=== PATIENT | male | born 1955 | race Caucasian/White ===

== ENCOUNTER 2021-09-07 10:35 | Outpatient (CLI) | payer BC | END 2021-09-07 10:36 | disposition home or self-care (01) | LOC: SCSCT 10:35 | PROVIDERS: ATTEND Family Medicine | DX: R31.9 Hematuria, unspecified (principal); M54.50 Low back pain, unspecified; N20.0 Calculus of kidney; Z93.2 Ileostomy status | CPT/HCPCS: 74176 ==

== ENCOUNTER 2021-10-05 16:40 | Inpatient (IN) | payer BC, MEDICARE ==
[~2021-10-05 16:40] MED LIST: ISOVUE-370 76%-LOCM 1 ML ONE
[2021-10-05 17:29] LABS: #Basophils 0.1 thou/uL (0.0-0.2); #Eosinphils 0.2 thou/uL (0.0-0.7); #Lymphocytes 1.3 thou/uL (1.20-3.40); %Basophils 1.4 % (0.0-1.0); %Eosinophils 2.9 % (0.0-10.0); %Lymphocytes 19.3 % (21.0-51.0); %Monocytes 14.6 % (0.0-10.0); %Neutrophils 61.9 % (42.0-75.0); Hemoglobin 16.2 g/dL (14.0-18.0); Mean Corpuscular HGB CONC 33.4 g/dL (32.0-36.0); Mean Corpuscular Hemoglobin 33.4 pg (27.0-31.0); Mean Platelet Volume 7.5 fL (7.4-10.4); Platelet Count 198 thou/uL (130-400); RBC Distribution Width 12.3 % (11.5-14.5); Red Blood Cell (RBC) Count 4.84 mill/uL (4.70-6.10); White Blood Cell (WBC) Count 6.5 thou/uL (4.8-10.8)
[2021-10-05 17:55] LABS: ALT (SGPT) 47 U/L (8-55); AST (SGOT) 56 U/L (5-34); Albumin 4.4 g/dL (3.4-4.8); Alkaline Phosphatase 90 U/L (40-110); Anion Gap 13 mmol/L (10-20); BUN (Urea Nitrogen) 17 mg/dL (8.4-25.7); Bilirubin, Total 0.4 mg/dL (0.2-1.2); Calc. Creatinine Clearance 0 mL/min (70-130); Calcium 9.5 mg/dL (7.8-10.44); Carbon Dioxide 27 mmol/L (23-31); Chloride 102 mmol/L (98-107); Estimated GFR 69; Globulin 2.7 g/dL (2.4-3.5); Glucose 102 mg/dL (80-115); Lipase 99 U/L (8-78); Potassium 4.2 mmol/L (3.5-5.1); Protein, Total 7.1 g/dL (5.8-8.1); Sodium 138 mmol/L (136-145)
[2021-10-05] MEDS ORDERED: Aspirin Chewable 81 MG TAB ONE (20:28)
[2021-10-05] MEDS ORDERED: Bisacodyl 5 MG TAB PO PRN (21:59)
[2021-10-05] MEDS ORDERED: Senokot S 8.6-50 MG TAB PO PRN (21:59)
[2021-10-05] MEDS ORDERED: Acetaminophen 325 MG TAB PO PRN (21:59)
[2021-10-05] MEDS ORDERED: Acetaminophen 650 MG Suppository PR PRN (21:59)
[2021-10-05] MEDS ORDERED: Ondansetron PF 4 MG/2 ML Vial IVP PRN (21:59)
[2021-10-05] MEDS ORDERED: HYDROcodone/Acetaminophen 5/325 mg Tablet PO PRN (21:59)
[2021-10-05] MEDS ORDERED: Ondansetron ODT 4 MG TAB PO PRN (21:59)
[2021-10-05 22:24] LABS: Hemoglobin A1c 5.3 % (4.0-6.0)
[2021-10-05] MEDS ORDERED: Morphine 2 MG/ML VIAL SLOW IVP PRN (22:29)
[2021-10-05] MEDS: Sodium Chloride 0.9% 1,000 ML IV SCH (23:00)
[2021-10-06 01:10] LABS: Troponin I 0.016 ng/mL (< 0.028)
[2021-10-06 04:50] LABS: #Basophils 0.1 thou/uL (0.0-0.2); #Eosinphils 0.3 thou/uL (0.0-0.7); #Lymphocytes 1.2 thou/uL (1.20-3.40); #Monocytes 0.8 thou/uL (0.11-0.59); #Neutrophils 3.5 thou/uL (1.40-6.50); %Lymphocytes 20.9 % (21.0-51.0); %Monocytes 13.1 % (0.0-10.0); %Neutrophils 60.1 % (42.0-75.0); Hemoglobin 14.7 g/dL (14.0-18.0); Mean Corpuscular HGB CONC 32.3 g/dL (32.0-36.0); Mean Corpuscular Hemoglobin 32.5 pg (27.0-31.0); Mean Platelet Volume 7.7 fL (7.4-10.4); Platelet Count 179 thou/uL (130-400); RBC Distribution Width 12.4 % (11.5-14.5); Red Blood Cell (RBC) Count 4.53 mill/uL (4.70-6.10); White Blood Cell (WBC) Count 5.8 thou/uL (4.8-10.8)
[2021-10-06 05:10] LABS: ALT (SGPT) 39 U/L (8-55); AST (SGOT) 49 U/L (5-34); Albumin 3.9 g/dL (3.4-4.8); Alkaline Phosphatase 72 U/L (40-110); Anion Gap 12 mmol/L (10-20); BUN (Urea Nitrogen) 14 mg/dL (8.4-25.7); Bilirubin, Total 0.4 mg/dL (0.2-1.2); Calc. Creatinine Clearance 150 mL/min (70-130); Calcium 8.8 mg/dL (7.8-10.44); Carbon Dioxide 24 mmol/L (23-31); Cardiac Risk 4.5 (Less than 4.5); Chloride 106 mmol/L (98-107); Cholesterol 180 mg/dl (< 200 Desired); Estimated GFR 95; Globulin 2.7 g/dL (2.4-3.5); Glucose 96 mg/dL (80-115); HDL Cholesterol 40 mg/dL (>60 Neg Risk); LDL Cholesterol, Calculated 124 mg/dL; Potassium 3.9 mmol/L (3.5-5.1); Protein, Total 6.6 g/dL (5.8-8.1); Sodium 138 mmol/L (136-145); Triglycerides 81 mg/dL (Less than 150)
[2021-10-06 05:13] LABS: Troponin I 0.016 ng/mL (< 0.028)
[2021-10-06] MEDS: Sodium Chloride 0.9% 1,000 ML IV SCH ×2 (10:45→17:50)
[2021-10-06] MEDS: Nitroglycerin 2% Ointment 1 INCH/1 GM Packet TOP SCH ×2 (10:45→14:43)
[2021-10-06] MEDS ORDERED: Aspirin Chewable 81 MG TAB ONE (10:50)
[2021-10-06] MEDS: Aspirin Chewable 81 MG TAB PO SCH (10:51)
[2021-10-06 12:39] VITALS: BMI 39.2
[2021-10-07] MEDS: Sodium Chloride 0.9% 1,000 ML IV SCH (03:06)
[2021-10-07] MEDS ORDERED: Regadenoson 0.4 MG/5 ML SYRINGE ONE (09:47)
[2021-10-07 12:22] LABS: Campy jejuni + coli by PCR Negative (Negative); STEC Shiga Toxin 1+2 Negative (Negative); Salmonella spp. by PCR Negative (Negative); Shigella spp + EIEC by PCR Negative (Negative)
[2021-10-07] MEDS: Aspirin Chewable 81 MG TAB PO SCH (14:50)
[2021-10-07] MEDS ORDERED: GoLYTELY 4,000 ml Bottle PO SCH ×2 (16:00→17:15)
[2021-10-08 04:59] LABS: #Basophils 0.1 thou/uL (0.0-0.2); #Eosinphils 0.4 thou/uL (0.0-0.7); #Neutrophils 5.3 thou/uL (1.40-6.50); %Basophils 0.7 % (0.0-1.0); %Eosinophils 4.9 % (0.0-10.0); %Lymphocytes 13.1 % (21.0-51.0); %Monocytes 12.6 % (0.0-10.0); %Neutrophils 68.8 % (42.0-75.0); Hemoglobin 14.9 g/dL (14.0-18.0); Mean Corpuscular HGB CONC 32.7 g/dL (32.0-36.0); Mean Corpuscular Hemoglobin 33.4 pg (27.0-31.0); Mean Platelet Volume 7.6 fL (7.4-10.4); Platelet Count 177 thou/uL (130-400); RBC Distribution Width 12.4 % (11.5-14.5); Red Blood Cell (RBC) Count 4.46 mill/uL (4.70-6.10); White Blood Cell (WBC) Count 7.7 thou/uL (4.8-10.8)
[2021-10-08 05:22] LABS: Anion Gap 11 mmol/L (10-20); BUN (Urea Nitrogen) 8 mg/dL (8.4-25.7); Calc. Creatinine Clearance 147 mL/min (70-130); Calcium 8.9 mg/dL (7.8-10.44); Carbon Dioxide 26 mmol/L (23-31); Chloride 104 mmol/L (98-107); Estimated GFR 92; Glucose 88 mg/dL (80-115); Sodium 137 mmol/L (136-145)
[2021-10-08] MEDS ORDERED: PROPOFOL 40 ML ONE (12:37)
[2021-10-08] MEDS ORDERED: Ketamine 50 MG/ML (10ML VIAL) ONE (12:37)
[2021-10-08] MEDS ORDERED: Ondansetron HCl/PF 4 MG/2 ML Vial IVP PRN (12:39)
[2021-10-08] MEDS ORDERED: Promethazine HCl 25 MG/ML VIAL IM PRN (12:39)
[2021-10-08] MEDS ORDERED: Promethazine HCl 25 MG/ML VIAL IVPB PRN (12:39)
[2021-10-08] MEDS: Aspirin Chewable 81 MG TAB PO SCH (15:40)
[2021-10-08 16:42] VITALS: BP 129/59; TEMP 98
== END 2021-10-08 18:15 | disposition home or self-care (01) | DRG 384 ==
LOC: ERS 16:40 → SUATTDRO 16:40 → ERHOLD 22:03 → 2SW 10-06 12:02 → OBSVTOIN 10-07 15:02
PROVIDERS: ADMIT Hospitalist; ATTEND Hospitalist
PROC: 0DJD8ZZ Inspection of Lower Intestinal Tract, Via Natural or Artificial Opening Endoscopic (ICD-10-PCS; principal; 2021-10-08)
PROC: 0DB98ZX Excision of Duodenum, Via Natural or Artificial Opening Endoscopic, Diagnostic (ICD-10-PCS; 2021-10-08)
PROC: 5A09357 Assistance with Respiratory Ventilation, Less than 24 Consecutive Hours, Continuous Positive Airway Pressure (ICD-10-PCS; 2021-10-08)
DX: K25.9 Gastric ulcer, unspecified as acute or chronic, without hemorrhage or perforation (principal); K51.00 Ulcerative (chronic) pancolitis without complications; I45.2 Bifascicular block; K86.1 Other chronic pancreatitis; K65.4 Sclerosing mesenteritis; Z20.822 Contact with and (suspected) exposure to COVID-19; K26.9 Duodenal ulcer, unspecified as acute or chronic, without hemorrhage or perforation; R07.89 Other chest pain; I45.10 Unspecified right bundle-branch block; E78.5 Hyperlipidemia, unspecified; Z96.653 Presence of artificial knee joint, bilateral; Z96.643 Presence of artificial hip joint, bilateral; K43.5 Parastomal hernia without obstruction or gangrene; K29.70 Gastritis, unspecified, without bleeding; K29.80 Duodenitis without bleeding; G47.33 Obstructive sleep apnea (adult) (pediatric); Z88.5 Allergy status to narcotic agent; Z90.49 Acquired absence of other specified parts of digestive tract; Z79.899 Other long term (current) drug therapy; Z98.890 Other specified postprocedural states; Z82.49 Family history of ischemic heart disease and other diseases of the circulatory system; Z83.79 Family history of other diseases of the digestive system; Z93.2 Ileostomy status
CPT/HCPCS: 36415; 74177; 78452; 80048; 80053; 80061; 83036; 83630; 83690; 83880; 84484; 85025; 87505; 88305; 88342; 93005; 93017; 94760; 96360; 96361; A9500; G0378; J2704; J2785; J7050; Q9966; U0003; U0005